=== PATIENT | female | born 1965 | race American Indian/Alaskan Native ===

== ENCOUNTER 2016-12-24 08:33 | Outpatient (CLI) | payer OTHER ==
[2016-12-24 10:08] LABS: Blood Urea Nitrogen 10 mg/dL (7-17)
--- NOTE | 2016-12-24 13:13 | Cat Scan Report ---
CT scan of chest and abdomen and pelvis with IV contrast: History: Endometrial cancer. Findings: No endobronchial or mediastinal mass. No mediastinal, hilar or axillary adenopathy. Normal lung parenchyma. No consolidation or mass. No pleural pericardial effusion. There is 8.5 x 5 cm mass identified the right lobe liver with pattern of enhancement suggestive of hemangioma. Hypodensities of the left lobe of the liver suggestive of cyst. Normal gallbladder. Normal spleen and pancreas. Normal adrenals. Subcentimeter hypodensities right kidney and left kidney suggestive of cysts. Normal bladder. No free intraperitoneal fluid or air. No evidence of adenopathy. Normal aorta. Gaseous colon with moderate volume stool in colon and rectum. No evidence of appendicitis or diverticulitis. Impression: Hemangioma right lobe liver. Cysts left lobe liver.
== END 2016-12-24 08:34 | disposition home or self-care (01) ==
LOC: CT 08:33
PROVIDERS: ATTEND Obstetrics & Gynecology Gynecologic Oncology
DX: C54.1 Malignant neoplasm of endometrium (principal); D18.09 Hemangioma of other sites; R16.0 Hepatomegaly, not elsewhere classified; K76.89 Other specified diseases of liver
CPT/HCPCS: 36415; 71260; 74177; 82565; 84520; Q9967

== ENCOUNTER 2017-11-12 09:59 | Outpatient (CLI) | payer OTHER ==
--- NOTE | 2017-11-12 15:21 | Cat Scan Report ---
CT chest with contrast: Endometrial cancer evaluation for pulmonary nodules. Following IV contrast administration transverse images are performed through the chest into the upper abdomen with coronal and sagittal 2-D reformatted images. There is good opacification of the pulmonary vessels cardiac chambers and thoracic aorta. There no pulmonary filling defects no cardiac chamber defects. The thoracic aorta is normal in size and contour. No adenopathy. The central airways are patent. There are no pulmonary nodules no pleural abnormalities identified. The lungs are well inflated and generally clear. Sections carried into the upper abdomen demonstrates multiple enhancing hepatic masses in a large area of hypodensity the lateral right lobe. Multiple smaller circumscribed low density masses are identified in both left and right lobes with a few small similar masses in the pancreas and both kidneys. The latter lesions are consistent with benign cysts. In the lower right breast there is a circumscribed 8mm noncalcified nodule. Impression: 1. No pulmonary nodule identified. 2. Metastatic appearing right lobe liver lesions. 3. Nonspecific right breast nodule.
== END 2017-11-12 10:00 | disposition home or self-care (01) ==
LOC: CT 09:59
PROVIDERS: ATTEND Obstetrics & Gynecology Gynecologic Oncology
DX: C54.1 Malignant neoplasm of endometrium (principal); D49.59 Neoplasm of unspecified behavior of other genitourinary organ; R91.8 Other nonspecific abnormal finding of lung field; N63.10 Unspecified lump in the right breast, unspecified quadrant
CPT/HCPCS: 36415; 71260; 82565; Q9967

== ENCOUNTER 2019-07-20 07:47 | Day surgery (SDC) | payer OTHER ==
[~2019-07-20 07:47] MED LIST: ANCEF/STERILE WATER 2 GM/20 ML 2 GM/20 ML SYRINGE IV NR; HEPARIN IV ONE; LACTATED RINGERS 1,000 ML IV SCH; NEURONTIN PO NR; TYLENOL PO SCH
[2019-07-20] MEDS ORDERED: HEPARIN 10,000 UNITS/10 ML ONE (08:03)
[2019-07-20] MEDS ORDERED: MARCAINE 0.5% INFILTRATI ONE (08:03)
[2019-07-20] MEDS ORDERED: NACL 0.9% 250ML 250 ML ONE (08:03)
[2019-07-20] MEDS ORDERED: XYLOCAINE 1% 20 mL ONE (08:03)
[2019-07-20] MEDS ORDERED: SUBLIMAZE IV PRN (08:31)
[2019-07-20] MEDS ORDERED: PEPCID IV NR (08:33)
--- NOTE | 2019-07-20 08:33 | Anesthesia Day of Surgery ---
Anesthesia Day of Surgery - Day of Surgery Patient Examined: Yes Patient H&P Reviewed: Yes Patient is NPO: Yes
--- NOTE | 2019-07-20 08:33 | Anesthesia Consultation ---
Anesthesia Consult and Med Hx Date of service: 07/20/19 - Airway Anesthetic Teeth Evaluation: Good ROM Head & Neck: Adequate Mental/Hyoid Distance: Adequate Mallampati Class: Class II Intubation Access Assessment: Probably Good - Pulmonary Exam CTA: Yes - Cardiac Exam Cardiac Exam: RRR - Pre-Operative Health Status ASA Pre-Surgery Classification: ASA2 Proposed Anesthetic Plan: General - Pulmonary Hx Smoking: No Hx Respiratory Symptoms: No - Cardiovascular System Hx Hypertension: No Hx Heart Attack/AMI: No - Central Nervous System CVA: No Hx Back Pain: Yes (LOWER BACK) - Gastrointestinal Hx Gastroesophageal Reflux Disease: Yes (well controlled) - Endocrine Hx Renal Disease: No Hx Liver Disease: No Hx Insulin Dependent Diabetes: No Hx Non-Insulin Dependent Diabetes: No Hx Thyroid Disease: No - Other Systems Hx Alcohol Use: No Hx Substance Use: No Hx Cancer: Yes (hx breast ca; last chemo 2016) - Additional Comments Anesthesia Medical History Comments: No hx anesthetic complications.
[2019-07-20 08:41] LABS: Hematocrit 38.7 % (30.3-42.9); Mean Corpuscular HGB Conc 34 % (30-34); Mean Corpuscular Volume 94 fl (79-97); Platelet Count 180 K/mm3 (140-440); Red Blood Count 4.13 M/mm3 (3.65-5.03)
[2019-07-20] MEDS ORDERED: SUBLIMAZE ONE (08:53)
[2019-07-20] MEDS ORDERED: VERSED ONE (08:53)
[2019-07-20] MEDS ORDERED: XYLOCAINE MPF 2% ONE (08:53)
[2019-07-20] MEDS ORDERED: DIPRIVAN 10 MG/ML IV ONE (08:54)
[2019-07-20] MEDS ORDERED: VERSED IV NR (09:00)
[2019-07-20] MEDS ORDERED: MARCAINE-EPI 0.5%-1:200,000 INFILTRATI ONE (09:14)
--- NOTE | 2019-07-20 09:34 | Short Stay Summary ---
Short Stay Documentation Date of service: 07/20/19 - History H&P: obtained from office - Allergies and Medications Current Medications: Allergies No Known Allergies Allergy (Verified 07/18/19 10:54) Home Medications Medication Instructions Recorded Confirmed Last Taken Type raNITIdine HCl [Zantac 300 MG TAB] 300 mg PO QDAY 08/04/16 07/18/19 08/04/16 History Active Medications Acetaminophen (Tylenol) 1,000 mg PO PREOP QUINCY Stop: 07/20/19 23:00 Celecoxib (Celebrex) 200 mg PO PREOP NR Stop: 07/20/19 23:00 Famotidine (Pepcid) 20 mg IV ONCE NR Stop: 07/20/19 20:00 Fentanyl (Sublimaze) 50 mcg IV Q5MIN PRN PRN Reason: Pain , Severe (7-10) Stop: 07/20/19 20:00 Gabapentin (Neurontin) 300 mg PO PREOP NR Stop: 07/20/19 23:00 Lactated Ringer's (Lactated Ringers) 1,000 mls @ 100 mls/hr IV DIRECT QUINCY Cefazolin Sodium (Ancef/Sterile Water 2 Gm/20 Ml) 2 gm in 20 mls @ 80 mls/hr IV PREOP NR; Protocol Stop: 07/20/19 23:00 Midazolam HCl (Versed) 2 mg IV PREOP NR Stop: 07/20/19 23:59 - Physical exam General appearance: no acute distress Integumentary: no rash, no growths, no abnormal pigmentation Lungs: Normal air movement Neurological: Normal speech - Brief post op/procedure progress note Date of procedure: 07/20/19 (dictation:[id number]) Pre-op diagnosis: breast cancer Post-op diagnosis: same Procedure: US guided port placement IVF 750cc EBL min Anesthesia: GETA Findings: normal anatomy Surgeon: JUAN ROCK Estimated blood loss: minimal Pathology: none Condition: stable - Hospital course Hospital course: uneventful - Disposition Condition at discharge: Stable Disposition: DC-01 TO HOME OR SELFCARE Short Stay Discharge Plan Wound: open to air, keep clean and dry Additional Instructions: Post Operative Instructions No driving until cleared by surgeon. May shower tomorrow. Pat dry the wound or wounds. After surgery, start with a light diet. Consider having a liquid diet first. If you do well, you can advance to a regular diet as you feel comfortable. Apply an ice pack to the wound or wounds for 10-20 minutes at a time. Do this at least 4-5 times a day. You can do it more if he would like. Alternate the use of ibuprofen and Tylenol for the first 2 days. I want you to take these on a scheduled basis. Take 600 mg of ibuprofen every 6 hours. Take 500 mg of Tylenol every 6 hours. You should alternate these 2 medicines. In other words, beginning with the ibuprofen. After 3 hours, take the Tylenol. Keep alternating the 2 drugs every 3 hours. Do this on a scheduled basis for the first 2 days. After that, you can take them as needed. It is very important that you use the prescription pain medicine only for very severe pain. Do not take the prescription medicine before you try using the ibuprofen and Tylenol. We will call you in a couple of days to see how youre doing. If you have any questions or concerns, always feel free to call the clinic at any time. Follow up with: CAMILLE JOHN MD [Primary Care Provider] - 7 Days Forms: Outpatient Surgery DC Inst. Prescriptions: HYDROcodone/APAP 5-325 [Donora 5/325] 1 each PO Q6HR PRN #10 tablet PRN Reason: Pain , Severe (7-10)
[2019-07-20 09:42] LABS: Total Cells Counted 100
[2019-07-20 09:43] LABS: RBC Morphology Normal
[2019-07-20] MEDS ORDERED: NEO SYNEPHRINE ONE (09:57)
[2019-07-20] MEDS ORDERED: ZOFRAN ONE (09:58)
[2019-07-20] MEDS ORDERED: REGLAN ONE (09:58)
[2019-07-20] MEDS ORDERED: DECADRON ONE (09:58)
[2019-07-20] MEDS ORDERED: TORADOL ONE (09:59)
[2019-07-20] MEDS ORDERED: XYLOCAINE 1% 20 mL INFILTRATI ONE ×2 (10:00)
[2019-07-20] MEDS ORDERED: MARCAINE-EPI/PF 0.5%-1:200,000 INFILTRATI ONE ×2 (10:00)
[2019-07-20] MEDS ORDERED: NACL P/F VIAL (10 ML) 10 ML ONE (10:05)
[2019-07-20] MEDS ORDERED: NACL 0.9% 250ML IV ONE (10:13)
[2019-07-20] MEDS ORDERED: HEPARIN IV ONE ×2 (10:13→10:29)
[2019-07-20 10:18] LABS: Platelet Estimate Consistent w Auto
--- NOTE | 2019-07-20 11:18 | Fluoroscopy Report ---
FLUOROSCOPY CENTRAL VENOUS DEVICE PLACEMENT HISTORY: Right breast cancer, left Xhqknv-d-Tafd placement FINDINGS: 2.3 minutes of fluoroscopy time was provided by radiology during left Iyfthu-u-Ewmr insertion. 2 AP v iews of the chest are presented. The distal tip of the left IJ Ppszio-c-Sqwa terminates at the cavoat rial junction. The lungs are well-aerated. No evidence for pneumothorax. Normal heart and mediastinal structures. The bony thorax is unremarkable. IMPRESSION: Left Ofxkkw-g-Tajm placement as described. No pneumothorax. Signer Name: Alen Kapoor Jr, MD Signed: 07/20/2019 11:13 AM Workstation Name: [id number]
[2019-07-20 11:59] VITALS: BP 107/65
--- NOTE | 2019-07-20 13:55 | Post Anesthesia Evaluation ---
- Post Anesthesia Evaluation Patient Participated: Yes Airway Patent: Yes Stable Respiratory Function: Yes Nausea/Vomiting: No Temp > 96.8F: Yes Pain Manageable: Yes Adequeate Hydration: Yes Anesthesia Complications: No Block Receding Appropriately: Not Applicable Patient on Ventilator: No
--- NOTE | 2019-07-20 14:17 | Operative Report ---
PREOPERATIVE DIAGNOSIS: Breast cancer. POSTOPERATIVE DIAGNOSIS: Breast cancer. PROCEDURES: 1. Insertion of tunneled centrally inserted central venous access device with subcutaneous port. 2. Ultrasound guidance for vascular access. ATTENDING PHYSICIAN: Carlie Jerome MD. ANESTHESIA: General. ESTIMATED BLOOD LOSS: Minimal. FLUIDS: 750 mL. FINDINGS: Normal vascular anatomy. IMPLANTS: Smart Port. DRAINS: None. DISPOSITION: Stable, transferred to Recovery Room. INDICATIONS: This is a 54-year-old female, who was recently diagnosed with breast cancer. The patient is assessed to be in need for chemotherapy and need for port placement. Procedure, risks, benefits were explained to the patient. Risks included but were not limited to infection, bleeding, pain, injury to surrounding structures, possible need for further procedures in the future. The patient understood and consented. OPERATIVE NOTE: The patient was brought to the operating room and placed on the table in supine position. After adequate general anesthesia was established, roll was placed underneath the shoulder blades. Ultrasound examination was done of the internal jugular and subclavian. Internal jugular was widely patent. I saw no areas of stenosis or obstruction that was easily compressible. The subclavian vein was deep and very close to the lung. Therefore, it was assessed that the internal jugular was a better target. Sterile prep and drape was performed. Antibiotics had been given. SCDs were in place. Time-out was called. The patient was placed in Trendelenburg position. Under ultrasound guidance, I anesthetized the planned insertion site in the neck. Small incision was made. I watched the introducer needle going under ultrasound guidance and accessed the vessel on the first stick. Good aspiration of blood. We tried to place the guidewire; however, it would not go all the way. Fluoroscopy was brought in. The guidewire was going down the left subclavian vein. We tried switching to a heavier guidewire. Ultimately, we needed to turn the head towards the patient's left side in order to have the guidewire go down towards the heart. Once this was done, then I injected the planned pocket site. The patient had a previous port. Therefore, I excised her old scar created the pocket. Hemostasis was achieved with electrocautery. I injected the planned tunneling site. I brought the catheter up to the neck and out our initial incision. Dilator and sheath were passed over the wire very easily. Catheter was inserted. We adjusted the length with fluoroscopy and then modified the distal end and attached to the port. Catheter easily aspirated and flushed. We secured the port to the underlying tissue with a 3-0 Vicryl suture on the lateral aspect of the port. Port was locked and the patient was placed in reverse Trendelenburg at this point. Additional local was injected. I closed the deep layer with interrupted 3-0 Vicryl sutures. Skin was closed with a running 4-0 Monocryl subcuticular stitch. Skin was cleaned and dried. Dermabond was placed. The patient tolerated the procedure well. There were no complications. All counts were correct at the end of the case. Postoperative chest x-ray showed no complications and catheter to be in good position. JOB# [id number] AGNES/SHAWN
== END 2019-07-20 12:40 | disposition home or self-care (01) ==
LOC: OR 07:47
PROVIDERS: ATTEND Surgery
DX: C50.911 Malignant neoplasm of unspecified site of right female breast (principal); K21.9 Gastro-esophageal reflux disease without esophagitis; Z90.710 Acquired absence of both cervix and uterus; Z90.721 Acquired absence of ovaries, unilateral; Z80.8 Family history of malignant neoplasm of other organs or systems; Z98.890 Other specified postprocedural states
CPT/HCPCS: 36415; 36561; 77001; 85007; 85025; C1769; C1788; J0690; J1100; J1644; J1885; J2250; J2370; J2405; J2704; J2765; J3010; J7050; J7120